=== PATIENT | female | born 1965 | race Caucasian/White ===

== ENCOUNTER 2017-10-29 09:49 | Emergency (ER) | payer OTHER | END 2017-10-29 11:22 | disposition home or self-care (01) | LOC: FTE 09:49 | DX: S42.291A Other displaced fracture of upper end of right humerus, initial encounter for closed fracture (principal); W18.39XA Other fall on same level, initial encounter; Y92.9 Unspecified place or not applicable | CPT/HCPCS: 29105; 73000; 73030-RT; 73060-RT; 99283-25 ==

== ENCOUNTER 2018-01-15 11:10 | Inpatient (IN) | payer OTHER ==
[2018-01-15] MEDS: SOD CHLORIDE 0.9% 1,000 ML IV ×2 (11:50→18:32)
[2018-01-15 11:52] LABS: ADD MAN DIFF? NO
[2018-01-15 11:54] LABS: WHITE BLOOD COUNT 9.6 10^3/ul (4.8-10.8)
[2018-01-15 11:54] LABS: BASOPHIL # 0.1 10^3/ul (0.0-0.1); BASOPHILS % 0.7 % (0.0-2.0); EOSINOPHILS # 0.5 10^3/ul (0.0-0.5); EOSINOPHILS % 5.2 % (0.0-7.0); HEMATOCRIT 41.2 % (37.0-47.0); HEMOGLOBIN 13.2 g/dl (12.0-16.0); LYMPHOCYTES # 1.2 10^3/ul (0.8-2.9); MEAN CORPUSCULAR HEMOGLOBIN 30.7 pg (29.0-33.0); MEAN CORPUSCULAR VOLUME 95.8 fl (82.0-101.0); MEAN PLATELET VOLUME 11.6 fl (7.4-10.4); MONOCYTE # 0.5 10^3/ul (0.3-0.9); MONOCYTES % 5.1 % (0.0-11.0); NEUTROPHIL # 7.3 10^3/ul (1.6-7.5); NEUTROPHILS % 76.7 % (39.0-77.0); PLATELET COUNT 196 10^3/UL (140-415); RED CELL DISTRIBUTION WIDTH 12.1 % (11.5-14.5)
[2018-01-15 12:15] LABS: ALANINE AMINOTRANSFERASE 49 IU/L (13-69); ALBUMIN/GLOBULIN RATIO 1.25; ALKALINE PHOSPHATASE 93 IU/L (42-121); ANION GAP 15 (8-16); ASPARTATE AMINO TRANSFERASE 31 IU/L (15-46); BILIRUBIN,INDIRECT 0.5 mg/dl (0-1.1); BILIRUBIN,TOTAL 0.5 mg/dl (0.2-1.3); BLOOD UREA NITROGEN 14 mg/dl (7-20); CALCIUM 9.1 mg/dl (8.4-10.2); CARBON DIOXIDE 27 mmol/L (21-31); CHLORIDE 109 mmol/L (97-110); CREATININE 0.59 mg/dl (0.44-1.00); GLUCOSE 143 mg/dl (70-220); POTASSIUM 4.2 mmol/L (3.5-5.1); SODIUM 147 mmol/L (135-144); TOTAL PROTEIN 7.2 g/dl (6.1-8.1)
[2018-01-15 12:18] LABS: INR 1.04; PARTIAL THROMBOPLASTIN TIME 28.6 Sec (25.0-35.0); PROTIME 13.7 Sec (11.9-14.9); PT RATIO 1.1
[2018-01-15 12:21] LABS: ACETAMINOPHEN < 10.0 ug/ml (10.0-30.0); ETHANOL < 10.0 mg/dl; SALICYLATE < 1.0 mg/dl (5.0-30.0)
[2018-01-15 12:56] LABS: ADD UMIC NO; UR ASCORBIC ACID 40 mg/dL (NEGATIVE); UR BILIRUBIN (Dip) NEGATIVE (NEGATIVE); UR BLOOD (Dip) NEGATIVE (NEGATIVE); UR CLARITY CLEAR (CLEAR); UR COLOR YELLOW (YELLOW); UR GLUCOSE (Dip) NEGATIVE (NEGATIVE); UR KETONES (Dip) NEGATIVE (NEGATIVE); UR LEUKOCYTE ESTERASE (Dip) NEGATIVE Leu/ul (NEGATIVE); UR NITRITE (Dip) NEGATIVE (NEGATIVE); UR SPECIFIC GRAVITY (Dip) 1.027 (1.003-1.030); UR TOTAL PROTEIN (Dip) NEGATIVE (NEGATIVE); UR UROBILINOGEN (Dip) 1+ mg/dL (NEGATIVE)
[2018-01-15] MEDS: SODIUM CHLORIDE 0.9% 1L BAG IV* (13:10)
[2018-01-15 13:26] LABS: AMPHETAMINE/METHAMPHETAMINE Negative (NEGATIVE); BARBITURATES Negative (NEGATIVE); BENZODIAZEPINES Negative (NEGATIVE); CANNABINOIDS Negative (NEGATIVE); COCAINE Negative (NEGATIVE); OPIATES Negative (NEGATIVE)
[2018-01-15] MEDS ORDERED: ACETAMINOPHEN 325 MG TAB PO (13:30)
[2018-01-15] MEDS ORDERED: ONDANSETRON 4 MG INJ IV ×2 (13:30→18:00)
[2018-01-15 13:48] LABS: LACTIC ACID 2.5 mmol/L (0.5-2.0)
[2018-01-15] MEDS: LORAZEPAM 2 MG INJ IV (14:38)
[2018-01-15 16:13] LABS: LACTIC ACID 1.3 mmol/L (0.5-2.0)
[2018-01-15] MEDS ORDERED: NACL 0.9% 3 ML SYG IV (18:00)
[2018-01-15 20:33] LABS: LACTIC ACID 1.4 mmol/L (0.5-2.0)
[2018-01-15] MEDS: FAMOTIDINE 20 MG INJ IV (20:51)
[2018-01-16] MEDS: SOD CHLORIDE 0.9% 1,000 ML IV ×3 (02:43→20:41)
[2018-01-16 06:49] LABS: ADD MAN DIFF? NO
[2018-01-16 06:51] LABS: WHITE BLOOD COUNT 7.4 10^3/ul (4.8-10.8)
[2018-01-16 06:51] LABS: BASOPHIL # 0.1 10^3/ul (0.0-0.1); BASOPHILS % 0.8 % (0.0-2.0); EOSINOPHILS # 0.6 10^3/ul (0.0-0.5); EOSINOPHILS % 8.1 % (0.0-7.0); HEMATOCRIT 36.1 % (37.0-47.0); HEMOGLOBIN 11.3 g/dl (12.0-16.0); LYMPHOCYTES # 1.3 10^3/ul (0.8-2.9); LYMPHOCYTES % 17.7 % (15.0-51.0); MEAN CORPUSCULAR HEMOGLOBIN 29.9 pg (29.0-33.0); MEAN CORPUSCULAR HGB CONC 31.3 g/dl (32.0-37.0); MEAN CORPUSCULAR VOLUME 95.5 fl (82.0-101.0); MEAN PLATELET VOLUME 12.5 fl (7.4-10.4); MONOCYTE # 0.4 10^3/ul (0.3-0.9); MONOCYTES % 5.4 % (0.0-11.0); NEUTROPHILS % 67.7 % (39.0-77.0); PLATELET COUNT 181 10^3/UL (140-415); RED BLOOD COUNT 3.78 10^6/ul (4.20-5.40); RED CELL DISTRIBUTION WIDTH 12.1 % (11.5-14.5)
[2018-01-16 07:24] LABS: ALANINE AMINOTRANSFERASE 52 IU/L (13-69); ALBUMIN 3.1 g/dl (3.3-4.9); ALBUMIN/GLOBULIN RATIO 1.06; ALKALINE PHOSPHATASE 87 IU/L (42-121); ANION GAP 8 (8-16); ASPARTATE AMINO TRANSFERASE 38 IU/L (15-46); BILIRUBIN,INDIRECT 0.5 mg/dl (0-1.1); BILIRUBIN,TOTAL 0.5 mg/dl (0.2-1.3); BLOOD UREA NITROGEN 7 mg/dl (7-20); CALCIUM 8.3 mg/dl (8.4-10.2); CARBON DIOXIDE 25 mmol/L (21-31); CHLORIDE 113 mmol/L (97-110); CREATININE 0.48 mg/dl (0.44-1.00); GLUCOSE 90 mg/dl (70-220); POTASSIUM 3.5 mmol/L (3.5-5.1); SODIUM 142 mmol/L (135-144)
[2018-01-16 07:38] LABS: HEMOGLOBIN A1C 5.3 % (0-5.9)
[2018-01-16] MEDS: FAMOTIDINE 20 MG INJ IV ×2 (08:13→22:47)
[2018-01-16] MEDS: ENOXAPARIN 30 MG/0.3 ML SYG SC (08:15)
[2018-01-16] MEDS: ESCITALOPRAM 10 MG TAB PO (14:00)
[2018-01-17] MEDS: SOD CHLORIDE 0.9% 1,000 ML IV ×4 (07:28→22:15)
[2018-01-17] MEDS ORDERED: QUETIAPINE FUMARATE 150 MG PO (09:00)
[2018-01-17] MEDS: FAMOTIDINE 20 MG INJ IV ×2 (09:38→22:12)
[2018-01-17] MEDS: ENOXAPARIN 30 MG/0.3 ML SYG SC (09:39)
[2018-01-18] MEDS: SOD CHLORIDE 0.9% 1,000 ML IV ×3 (06:42→21:27)
[2018-01-18] MEDS: FAMOTIDINE 20 MG INJ IV ×2 (08:43→21:27)
[2018-01-18] MEDS: ENOXAPARIN 30 MG/0.3 ML SYG SC (09:02)
[2018-01-19] MEDS: SOD CHLORIDE 0.9% 1,000 ML IV ×2 (04:18→17:11)
[2018-01-19] MEDS: FAMOTIDINE 20 MG INJ IV ×2 (09:37→20:51)
[2018-01-19] MEDS: ENOXAPARIN 30 MG/0.3 ML SYG SC (09:37)
[2018-01-20] MEDS: SOD CHLORIDE 0.9% 1,000 ML IV ×3 (00:59→18:29)
[2018-01-20] MEDS: FAMOTIDINE 20 MG INJ IV ×2 (09:15→21:07)
[2018-01-20] MEDS: ENOXAPARIN 30 MG/0.3 ML SYG SC (09:16)
[2018-01-21] MEDS: SOD CHLORIDE 0.9% 1,000 ML IV ×4 (03:39→20:57)
[2018-01-21] MEDS: FAMOTIDINE 20 MG INJ IV ×2 (08:02→20:20)
[2018-01-21] MEDS: ENOXAPARIN 30 MG/0.3 ML SYG SC (08:24)
[2018-01-21] MEDS: morphine 2 MG INJ IV (20:58)
[2018-01-22] MEDS: FAMOTIDINE 20 MG INJ IV ×2 (08:57→21:03)
[2018-01-22] MEDS: ENOXAPARIN 30 MG/0.3 ML SYG SC (09:00)
[2018-01-22] MEDS: SOD CHLORIDE 0.9% 1,000 ML IV (12:48)
[2018-01-22] MEDS ORDERED: CEFAZOLIN 2 GM/50 ML (PMX) 50 ML IVPB (17:29)
[2018-01-22] MEDS ORDERED: PROPOFOL 20 ML (17:54)
[2018-01-23] MEDS: SOD CHLORIDE 0.9% 1,000 ML IV ×3 (06:20→22:02)
[2018-01-23] MEDS: FAMOTIDINE 20 MG INJ IV ×2 (08:03→20:25)
[2018-01-23] MEDS: ENOXAPARIN 30 MG/0.3 ML SYG SC (08:08)
[2018-01-24] MEDS: FAMOTIDINE 20 MG INJ IV ×2 (08:50→20:20)
[2018-01-24] MEDS: ENOXAPARIN 30 MG/0.3 ML SYG SC (08:52)
[2018-01-24] MEDS: SOD CHLORIDE 0.9% 1,000 ML IV ×2 (09:54→11:39)
[2018-01-24] MEDS: DOCUSATE SODIUM 10 MG/ML (10ML CUP) GTB ×2 (11:38→20:20)
[2018-01-25] MEDS: SOD CHLORIDE 0.9% 1,000 ML IV (00:09)
[2018-01-25] MEDS: FAMOTIDINE 20 MG INJ IV ×2 (08:54→20:05)
[2018-01-25] MEDS: DOCUSATE SODIUM 10 MG/ML (10ML CUP) GTB ×2 (08:54→20:05)
[2018-01-25] MEDS: ENOXAPARIN 30 MG/0.3 ML SYG SC (08:56)
[2018-01-26] MEDS: DOCUSATE SODIUM 10 MG/ML (10ML CUP) GTB ×2 (08:47→20:49)
[2018-01-26] MEDS: FAMOTIDINE 20 MG INJ IV ×2 (08:47→20:49)
[2018-01-26] MEDS: ENOXAPARIN 30 MG/0.3 ML SYG SC (08:53)
[2018-01-27] MEDS: FAMOTIDINE 20 MG INJ IV ×2 (08:31→21:06)
[2018-01-27] MEDS: DOCUSATE SODIUM 10 MG/ML (10ML CUP) GTB ×2 (08:31→21:06)
[2018-01-27] MEDS: ENOXAPARIN 30 MG/0.3 ML SYG SC (08:37)
[2018-01-28] MEDS: ENOXAPARIN 30 MG/0.3 ML SYG SC (09:27)
[2018-01-28] MEDS: DOCUSATE SODIUM 10 MG/ML (10ML CUP) GTB ×2 (09:29→21:09)
[2018-01-28] MEDS: FAMOTIDINE 20 MG INJ IV ×2 (09:29→21:09)
[2018-01-29] MEDS: FAMOTIDINE 20 MG INJ IV ×2 (09:03→20:49)
[2018-01-29] MEDS: DOCUSATE SODIUM 10 MG/ML (10ML CUP) GTB ×2 (09:03→20:49)
[2018-01-29] MEDS: ENOXAPARIN 30 MG/0.3 ML SYG SC (09:07)
[2018-01-30] MEDS: DOCUSATE SODIUM 10 MG/ML (10ML CUP) GTB (07:52)
[2018-01-30] MEDS: FAMOTIDINE 20 MG INJ IV (07:52)
[2018-01-30] MEDS: ENOXAPARIN 30 MG/0.3 ML SYG SC (07:57)
== END 2018-01-30 22:00 | disposition hospice, home (50) | DRG 640 ==
LOC: MS2 01-20 00:50 → 2NE 01-27 13:11 → E/R 11:10 → MS2 18:26
PROC: 0DH63UZ Insertion of Feeding Device into Stomach, Percutaneous Approach (ICD-10-PCS; principal; 2018-01-22 17:30)
DX: E86.0 Dehydration (principal); E43 Unspecified severe protein-calorie malnutrition; Z68.1 Body mass index [BMI] 19.9 or less, adult; F03.90 Unspecified dementia, unspecified severity, without behavioral disturbance, psychotic disturbance, mood disturbance, and anxiety; F20.9 Schizophrenia, unspecified; R13.10 Dysphagia, unspecified
CPT/HCPCS: 71045; 73030-RT; 80053; 80307; 81003; 83036; 83605; 85025; 85610; 85730; 87040; 87086; 92526; 92610; 97163; 99285-25